=== PATIENT | male | born 1990 | race Caucasian/White ===

== ENCOUNTER 2016-08-19 08:45 | Emergency (ER) | payer OTHER ==
[2016-08-19 09:00] VITALS: BP 123/79
--- NOTE | 2016-08-19 09:17 | UC ---
Skin Complaint HPI <Jeferson Cohen - Last Filed: 08/19/16 09:17> <Greg Mora - Last Filed: 08/19/16 10:15> - History of Current Complaint Chief Complaint: [facility]kin Time Seen by Provider: 08/19/16 09:10 Stated Complaint: TICK BITE - Allergy/Home Medications Allergies/Adverse Reactions: Allergies Allergy/AdvReac Type Severity Reaction Status Date / Time Penicillins [PCN] Allergy Unknown Verified 08/19/16 09:12 Reaction Details Review of Systems Skin: Rash All Other Systems Reviewed And Are Negative: Yes <Greg Mora - Last Filed: 08/19/16 10:15> PMH/Surg Hx/FS Hx/Imm Hx - Surgical History Surgical History: None - Social History Alcohol Use: Occasionally Substance Use Type: None Smoking Status (MU): Never Smoked Tobacco Amount Used/How Often: Daily <Jeferson Cohen - Last Filed: 08/19/16 09:17> Physical Exam Vital Signs: Initial Vital Signs Temp 98.4 F 08/19/16 08:56 Pulse 77 08/19/16 08:56 Resp 18 08/19/16 08:56 BP 123/79 08/19/16 08:56 Pulse Ox 100 08/19/16 08:56 <Jeferson Cohen - Last Filed: 08/19/16 09:17> Triage Information Reviewed: Yes Vital Signs: Initial Vital Signs Temp 98.4 F 08/19/16 08:56 Pulse 77 08/19/16 08:56 Resp 18 08/19/16 08:56 BP 123/79 08/19/16 08:56 Pulse Ox 100 08/19/16 08:56 <Greg Mora - Last Filed: 08/19/16 10:15> Course/Dx - Course Course Of Treatment: RX DOXYCYCLINE. PT WILL F/U WITH PMD. - Diagnoses Provider Diagnoses: ERYTHEMA MIGRANS. ELEVATED BLOOD PRESSURE <Greg Mora - Last Filed: 08/19/16 10:15> Discharge <Jeferson Cohen - Last Filed: 08/19/16 09:17> <Greg Mora - Last Filed: 08/19/16 10:15> - Discharge Plan Condition: Stable Disposition: HOME Prescriptions: DOXYcycline CAP(*) [DOXYcycline 100MG CAP(*)] 100 mg PO BID #42 cap Patient Education Materials: Lyme Disease (ED) Referrals: No Primary Care Phys,NOPCP [Primary Care Provider] - Additional Instructions: FOLLOW UP WITH YOUR DOCTOR. GET EVALUATED FOR ANY WORSENING OF YOUR CONDITION OR QUESTIONS OR CONCERNS.
--- NOTE | 2016-08-19 10:06 | UC ---
Wilfrido Bautista Benjamin, scribed for Greg Mora MD on 08/19/16 at 0958 . Skin Complaint HPI - HPI Summary HPI Summary: 25yo male who had a tick bite in left lateral ankle at work on 08/08/16, which the pt pulled it off immediately. Last night, pt noticed a itching rash on the bite site, but no tick was noticed. - History of Current Complaint Chief Complaint: [facility]kin Time Seen by Provider: 08/19/16 09:10 Stated Complaint: TICK BITE Hx Obtained From: Patient Onset/Duration: Gradual Onset, Lasting Days, Still Present Current Severity: None Location: Discrete, Foot (Left) - lateral ankle Character: Redness Aggravating: Nothing Alleviating: Nothing Associated Signs & Symptoms: Positive: Rash - Allergy/Home Medications Allergies/Adverse Reactions: Allergies Allergy/AdvReac Type Severity Reaction Status Date / Time Penicillins [PCN] Allergy Unknown Verified 08/19/16 09:12 Reaction Details Review of Systems Constitutional: Negative Skin: Rash - left lateral ankle Eyes: Negative ENT: Negative Respiratory: Negative Cardiovascular: Negative Gastrointestinal: Negative Genitourinary: Negative Motor: Negative Neurovascular: Negative Musculoskeletal: Negative Neurological: Negative Psychological: Negative All Other Systems Reviewed And Are Negative: Yes PMH/Surg Hx/FS Hx/Imm Hx Previously Healthy: Yes - Surgical History Surgical History: None - Family History Known Family History: Negative: Cardiac Disease, Hypertension, Diabetes - Social History Occupation: Employed Full-time Lives: With Family Alcohol Use: Occasionally Substance Use Type: None Smoking Status (MU): Never Smoked Tobacco Type: Smokeless Tobacco Amount Used/How Often: Daily Physical Exam Triage Information Reviewed: Yes Appearance: Well-Appearing, No Pain Distress, Well-Nourished Vital Signs: Initial Vital Signs Temp 98.4 F 08/19/16 08:56 Pulse 77 08/19/16 08:56 Resp 18 08/19/16 08:56 BP 123/79 08/19/16 08:56 Pulse Ox 100 08/19/16 08:56 Vital Signs Reviewed: Yes Eye Exam: Normal ENT Exam: Normal Dental Exam: Normal Neck: Positive: Supple, Nontender Respiratory: Positive: Chest non-tender, Lungs clear, Normal breath sounds, No respiratory distress Cardiovascular: Positive: RRR, No Murmur Abdomen Description: Positive: Nontender, Soft Bowel Sounds: Positive: Present Musculoskeletal: Positive: Strength Intact, ROM Intact Neurological: Positive: Alert, Muscle Tone Normal Psychological: Positive: Age Appropriate Behavior Skin: Positive: rashes - 5cm diameter erythemous rash at left lateral ankle. Course/Dx - Course Course Of Treatment: RX DOXYCYCLINE 100MG PO BID X 21 DAYS. F/U WITH PMD FOR BLOOD TESTING. - Diagnoses Provider Diagnoses: ERYTHEMA MIGRANS Discharge - Discharge Plan Condition: Stable Disposition: HOME Prescriptions: DOXYcycline CAP(*) [DOXYcycline 100MG CAP(*)] 100 mg PO BID #42 cap Patient Education Materials: Lyme Disease (ED) Referrals: No Primary Care Phys,NOPCP [Primary Care Provider] - Additional Instructions: FOLLOW UP WITH YOUR DOCTOR. GET EVALUATED FOR ANY WORSENING OF YOUR CONDITION OR QUESTIONS OR CONCERNS. The documentation as recorded by the Wilfrido palm Benjamin accurately reflects the service I personally performed and the decisions made by me, Greg Mora MD.
== END 2016-08-19 10:13 | disposition home or self-care (01) ==
LOC: UCEAST 08:45
DX: G43.909 Migraine, unspecified, not intractable, without status migrainosus (principal); Z88.0 Allergy status to penicillin
CPT/HCPCS: 99202; G0463